=== PATIENT | female | born 1995 | race Two or more races ===

== ENCOUNTER 2017-01-13 09:25 | Emergency (ER) | payer MEDICAID, OTHER ==
[~2017-01-13] VITALS: Ht 162.6 cm; Wt 80.0 kg
[2017-01-13 09:34] VITALS: BP 126/74
== END 2017-01-13 11:37 | disposition home or self-care (01) ==
LOC: ER 11:29
DX: J02.9 Acute pharyngitis, unspecified (principal); J45.909 Unspecified asthma, uncomplicated; Z91.040 Latex allergy status; F12.10 Cannabis abuse, uncomplicated
CPT/HCPCS: 99282